=== PATIENT | male | born 1985 | race Hispanic/Latino ===

== ENCOUNTER 2017-01-11 19:10 | Emergency (ER) | payer SELFPAY ==
[2017-01-11 19:11] VITALS: BMI 29.6
[2017-01-11 19:21] VITALS: BP 148/91; PULSE 117; RESP 20; TEMP 97.9; O2SAT 97
--- NOTE | 2017-01-11 19:46 | C.PDOC ---
History Of Present Illness 32 y/o male, with PMHx of bipolar disorder and schizophrenia, presents to the ED for evaluation of right hand wound. Otherwise, denies any injury, trauma, change in sensation, fever, or any other associated symptoms at this time. Time Seen by Provider: 01/11/17 19:41 Chief Complaint (Nursing): Abnormal Skin Integrity History Per: Patient History/Exam Limitations: no limitations Onset/Duration Of Symptoms: Days Current Symptoms Are (Timing): Still Present Location Of Injury: Right: Hand Recent travel outside of the [place]: No Additional History Per: Patient Past Medical History Reviewed: Historical Data, Nursing Documentation, Vital Signs Vital Signs: Last Vital Signs Temp 97.9 F 01/11/17 19:15 Pulse 117 H 01/11/17 19:15 Resp 20 01/11/17 19:15 BP 148/91 H 01/11/17 19:15 Pulse Ox 97 01/11/17 19:46 - Medical History PMH: Anxiety, Depression, HIV, Schizophrenia Denies: Chronic Kidney Disease - [facility] Procedures ALCOHOL DETOXIFICATION (07/03/12) INFLUENZA VACCINATION (07/03/12) INTRODUCTION OF SERUM/TOX/VACCINE INTO MUSCLE, PERC APPROACH (05/17/16) PSYCHIAT DRUG THERAP NEC (12/22/12) REPAIR SCALP SKIN, EXTERNAL APPROACH (05/17/16) Family History: States: No Known Family Hx - Social History Hx Tobacco Use: Yes Hx Alcohol Use: Yes Hx Substance Use: Yes - Immunization History Hx Tetanus Toxoid Vaccination: No Hx Influenza Vaccination: No Review Of Systems Except As Marked, All Systems Reviewed And Found Negative. Constitutional: Negative for: Fever, Chills Skin: Positive for: Other (right hand wound) Neurological: Negative for: Weakness, Numbness Physical Exam - Physical Exam Appears: Non-toxic, No Acute Distress, Other (bizarre affect) Skin: Warm, Dry, Other (3 small healing wound to right 2nd, 3rd, 4th MCP joint, no surrounding cellulitis, granulation tissues indicate healthy recovery) Head: Atraumatic, Normacephalic Eye(s): bilateral: Normal Inspection Oral Mucosa: Moist Neck: Supple Cardiovascular: Rhythm Regular, No Murmur Respiratory: Normal Breath Sounds, No Rales, No Rhonchi, No Wheezing Extremity: Normal ROM (FROM of right hand), No Tenderness, Capillary Refill (< 2 sec.), No Deformity, No Swelling Pulses: Left Radial: Normal, Right Radial: Normal Neurological/Psych: Oriented x3, Normal Speech, Normal Motor, Normal Sensation ED Course And Treatment O2 Sat by Pulse Oximetry: 97 (RA) Pulse Ox Interpretation: Normal Medical Decision Making Medical Decision Making: nicely healing R hand knuckle wounds, not infected ? prior trauma but pt cannot describe don't wear rubber gloves- makes them sweat Disposition Doctor Will See Patient In The: Office Counseled Patient/Family Regarding: Studies Performed, Diagnosis - Disposition Referrals: Aura Diana MD [Medical Doctor] - Disposition: HOME/ ROUTINE Disposition Time: 19:46 Condition: GOOD Additional Instructions: keep DRY Bacitracin ointment 2x/day Keep loosely bandaged Do NOT pick at these wounds, they will heal naturally. Instructions: Chronic Wound Care (ED) Forms: [facility] (Maltese) - Clinical Impression Clinical Impression: Open wound of hand - Scribe Statement The provider has reviewed the documentation as recorded by the Samib[place]ia Mei All medical record entries made by the [place] were at my direction and personally dictated by me. I have reviewed the chart and agree that the record accurately reflects my personal performance of the history, physical exam, medical decision making, and the department course for this patient. I have also personally directed, reviewed, and agree with the discharge instructions and disposition.
[2017-01-11] MEDS ORDERED: Bacitracin 500 Units/gm Oint Foilpak UD ONE (19:47)
== END 2017-01-11 20:02 | disposition home or self-care (01) ==
LOC: C.ER 19:10
DX: S61.401A Unspecified open wound of right hand, initial encounter (principal); X58.XXXA Exposure to other specified factors, initial encounter